=== PATIENT | male | born 1970 | race Caucasian/White ===

== ENCOUNTER 2022-04-25 09:04 | Emergency (ER) | payer OTHER, BC, MEDICAID, SELFPAY ==
[2022-04-25 09:27] VITALS: BP 136/83; PULSE 67; RESP 16; TEMP 36.4; O2SAT 100; BMI 21.7
[2022-04-25 09:50] VITALS: RESP 18
[2022-04-25] MEDS: ondansetron 2 mg/ML SDV 2 mL 4 MG IVP (09:50)
[2022-04-25] MEDS: morphine 4 mg/mL SDV 1 mL IVP (09:50)
--- NOTE | 2022-04-25 09:50 | W.ED.ABDPA2 ---
HPI - Abdominal Pain General: Chief Complaint: Abdominal Pain Stated Complaint: Severe pain in abd Time Seen by Provider: 04/25/22 09:06 Source: patient Mode of arrival: ambulatory History of Present Illness: 52-year-old male presents emergency room with complaints of abdominal discomfort. He has had it for the last couple of weeks. He had fallen and broken some ribs on the left side. He states intermittently had cramping since then. He has a history of right hemicolectomy due to a colon CA this was multiple years ago. He has had some nausea and vomiting. Denies any dysuria urgency or frequency no medication on hematemesis or coffee-ground emesis. No other family members have been sick. MD elicited complaint: abdominal pain Pertinent past history: other (Rib fractures 8 weeks ago) Onset (ago): week(s) Pain Consistency: constant Location: Epigastric Severity: moderate Quality: cramping Radiation: LUQ Exacerbating factors: movement Relieving factors: rest Associated Symptoms: Reports bloating, GI cramping and nausea; Denies anorexia, belching, change in bowel habits, change in stool character, chills, coffee ground emesis, constipation, diarrhea, dyspepsia, dysuria, excessive flatus, fever(s), heartburn, hematochezia, hematuria, hematemesis, fecal incontinence, loose stools, melena, poor appetite, syncope and vomiting Review of Systems Const: Reports: fatigue and malaise; Denies: fever(s) or chills ENMT: Denies: throat pain, ear or mastoid pain, nasal discharge or nasal congestion Card: Denies: syncope Resp: Denies: dyspnea, productive cough or non-productive cough GI: Reports: abdominal pain, nausea, bloating and GI cramping; Denies: vomiting, hematemesis, coffee ground emesis, heartburn, diarrhea, constipation, belching, excessive flatus, fecal incontinence, change in bowel habits, change in stool character, hematochezia or melena : Denies: flank pain, difficulty urinating, dysuria, urinary frequency, urinary urgency or hematuria Musc: Denies: neck pain or back pain Skin/Breast: Denies: rash or pruritus PFS ED PFSH: Medical History (Updated 04/25/22 @ 11:43 by Jose Reyes DO) 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 Rib fractures Surgical History (Updated 04/25/22 @ 09:57 by Jose Reyes DO) S/P colon resection Social History (Updated 04/25/22 @ 09:58 by Jose Reyes DO) Smoking and tobacco status: current every day smoker cigarettes and e-cigarettes Alcohol intake: former Physical Exam Const: COMMON NORMALS: no acute distress GENERAL APPEARANCE: cooperative and comfortable ORIENTATION/CONSCIOUSNESS: Yes awake, Yes oriented to person, Yes oriented to place and Yes oriented to time HENMT: COMMON NORMALS: normocephalic, atraumatic and hearing grossly normal bilaterally HEAD & SCALP: normocephalic and atraumatic Neck/C-Spine: COMMON NORMALS: no JVD Resp: COMMON NORMALS: normal respiratory effort, No retractions, No use of accessory muscles and clear to auscultation bilaterally AUSCULTATION: clear to auscultation bilaterally Cardio: COMMON NORMALS: no JVD, regular rate, regular rhythm and No murmurs present (Cardio) RATE: regular rate RHYTHM: regular rhythm GI: COMMON NORMALS: No hepatosplenomegaly present AUSCULTATION: Yes normoactive bowel sounds PALPATION: Yes Tenderness to palpation present (GI) Details: LUQ, No Guarding due to palpation present (GI) and Yes No hepatosplenomegaly present Extremity: COMMON NORMALS: normal to inspection, capillary refill normal, no clubbing, cyanosis or edema, no calf tenderness and no pedal edema Neuro: SENSORIUM/ORIENTATION: Yes oriented to person, Yes oriented to place and Yes oriented to time Skin: COMMON NORMALS: no rashes or lesions noted GENERAL SKIN EXAM: no rashes or lesions noted Course Vital Signs: Vital signs: Vital Signs Temperature 97.6 F 04/25/22 09:27 Pulse Rate 62 04/25/22 11:28 Respiratory Rate 18 04/25/22 11:28 Blood Pressure 131/74 04/25/22 11:28 Pulse Oximetry 98 04/25/22 11:28 MDM - Abdominal Pain Medical Decision Making CT shows small bowel enteritis also located in left upper quadrant. Labs otherwise unremarkable. There is some dilation of the common duct however there is no evidence of obstruction on the labs. UA is otherwise unremarkable. We will discharge patient home clear liquid diet for 24 to 48 hours can use ondansetron as needed. Medical Records I reviewed the patient's medical records. Lab Data I reviewed the patient's lab results. : 04/25/22 09:51 04/25/22 11:00 Labs/Radiology: Radiology Impressions Abdomen/Pelvis CT 04/25/22 10:19 IMPRESSION: 1. Prior postoperative changes RIGHT hemicolectomy with ileocolic anastomosis in the midabdomen. No evidence of high-grade small or large bowel obstruction. 2. Distended loops of fluid-filled small bowel in the LEFT upper quadrant with prominent mucosal enhancement suspicious for infectious or inflammatory small bowel enteritis. Distended enhancing small bowel measures up to 3.5 CM. 3. Normal spleen 4. No hydronephrosis in either kidney. Normal renal parenchymal enhancement. 5. Normal fluid-filled gallbladder with mild dilatation of the common bile duct measuring 9-10 mm. This can be further evaluated MRCP on an elective basis. Mild prominence of pancreatic duct which is otherwise normal in appearance. 6. Enlarged prostate measuring 4.6 cm with evidence of chronic bladder outlet obstruction. Recommend correlation PSA 7. No other acute findings. Notified Jose Reyes DO at 04/25/2022 11:29 AM. Laboratory Results WBC 7.3 10^3/uL (4.0-10.0) 04/25/22 09:51 RBC 4.45 10^6/uL (4.1-5.3) 04/25/22 09:51 Hgb 15.0 g/dL (11.7-16.6) 04/25/22 09:51 Hct 44.8 % (42.0-52.0) 04/25/22 09:51 MCV 100.7 fl (80-94) H 04/25/22 09:51 MCH 33.7 pg (28.0-34.0) 04/25/22 09:51 MCHC 33.5 g/dL (30.0-36.0) 04/25/22 09:51 RDW 13.2 % (12.1-15.1) 04/25/22 09:51 Plt Count 186 10^3/cmm (130-400) 04/25/22 09:51 MPV 10.1 fL (7.4-10.4) 04/25/22 09:51 Neut % (Auto) 61.3 % 04/25/22 09:51 Lymph % (Auto) 27.9 % 04/25/22 09:51 [place] % (Auto) 6.8 % 04/25/22 09:51 Eos % (Auto) 3.0 % 04/25/22 09:51 Baso % (Auto) 0.7 % 04/25/22 09:51 Neut # (Auto) 4.45 10^3/uL (1.8-7.7) 04/25/22 09:51 Lymph # (Auto) 2.0 10^3/uL (0.8-4.8) 04/25/22 09:51 [place] # (Auto) 0.5 10^3/uL (0.2-0.9) 04/25/22 09:51 Eos # (Auto) 0.2 10^3/uL (0.0-0.8) 04/25/22 09:51 Baso # (Auto) 0.1 10^3/uL (0.0-0.1) 04/25/22 09:51 Nucleated RBC % (auto) 0 % 04/25/22 09:51 Nucleated RBCs # 0.0 /100WBC 04/25/22 09:51 Sodium 137 mmol/L (136-145) 04/25/22 11:00 Potassium 3.9 mmol/L (3.5-5.1) 04/25/22 11:00 Chloride 101 mmol/L (98-107) 04/25/22 11:00 Carbon Dioxide 28 mmol/L (22-29) 04/25/22 11:00 Anion Gap 11.9 (5-19) 04/25/22 11:00 BUN 14 mg/dL (6-20) 04/25/22 11:00 Creatinine 0.7 mg/dL (0.7-1.2) 04/25/22 11:00 GFR Calculation 118.9 mL/min (90-130) 04/25/22 11:00 Glucose 92 mg/dL (65-115) 04/25/22 11:00 Calculated Osmolality 284 mOsm/kg (285-295) L 04/25/22 11:00 Lactic Acid 2.1 mmol/L (0.5-2.2) 04/25/22 09:51 Calcium 8.9 mg/dL (8.5-10.5) 04/25/22 11:00 Total Bilirubin 0.6 mg/dL (0.15-1.2) 04/25/22 11:00 AST 15 U/L (0-40) 04/25/22 11:00 ALT 16 U/L (0-41) 04/25/22 11:00 Alkaline Phosphatase 66 IU/L (40-130) 04/25/22 11:00 Total Protein 6.0 g/dL (6.6-8.7) L 04/25/22 11:00 Albumin 4.2 g/dL (3.5-5.2) 04/25/22 11:00 Globulin 1.8 g/dL (1.3-4.6) 04/25/22 11:00 Lipase 60 U/L (13-60) 04/25/22 11:00 Urine Color Yellow (Yellow) 04/25/22 10:25 Urine Appearance Clear (CLEAR) 04/25/22 10:25 Urine pH 5 (5-7) 04/25/22 10:25 Ur Specific [place] 1.025 (1.005-1.030) 04/25/22 10:25 Urine Protein Neg (Negative) 04/25/22 10:25 Urine Glucose (UA) Norm (Normal) 04/25/22 10:25 Urine Ketones 1+ (Negative) H 04/25/22 10:25 Urine Blood Neg (Negative) 04/25/22 10:25 Urine Nitrate Negative (Negative) 04/25/22 10:25 Urine Bilirubin Neg (Negative) 04/25/22 10:25 Urine Urobilinogen Norm mg/dL (Negative) 04/25/22 10:25 Ur Leukocyte Esterase Negative (Negative) 04/25/22 10:25 Discharge Plan Discharge Patient Disposition: Home Clinical Impression: Regional enteritis of small bowel Condition: Stable Prescriptions: New ondansetron HCl 4 mg tablet 4 mg PO Q6H PRN (Reason: nausea and vomiting) Qty: 20 0RF hydrocodone-acetaminophen 5-325 mg tablet 1 tab PO Q6H PRN (Reason: pain) Qty: 10 0RF Discharge Orders: Discharge ED (Routine); Ordered 04/25/22 Ordered By: Jose Reyes Discharge Diet: Clear Liquid Discharge Activity: Increase activity as tolerated Activity Restrictions/Additional Instructions: Clear liquid diet for 24 to 48 hours and advance as tolerated. Coding Level of Care Code ED Chiropractor Sole Practitioner for Chg Fwd Exam Comprehensive
[2022-04-25 09:57] VITALS: BP 138/75; PULSE 59; RESP 18; O2SAT 100
[2022-04-25 10:05] LABS: Basophils # 0.1 10^3/uL (0.0-0.1); Basophils % 0.7 %; Eosinophils # 0.2 10^3/uL (0.0-0.8); Hematocrit 44.8 % (42.0-52.0); Lymphocytes % 27.9 %; Mean Corpuscular HGB Conc 33.5 g/dL (30.0-36.0); Mean Corpuscular Hemoglobin 33.7 pg (28.0-34.0); Mean Corpuscular Volume 100.7 fl (80-94); Mean Platelet Volume 10.1 fL (7.4-10.4); Monocytes # 0.5 10^3/uL (0.2-0.9); Monocytes % 6.8 %; Neutrophils # 4.45 10^3/uL (1.8-7.7); Neutrophils % 61.3 %; Nucleated Red Blood Cells % 0 %; Platelet Count 186 10^3/cmm (130-400); Red Blood Count 4.45 10^6/uL (4.1-5.3); Red Cell Distribution Width 13.2 % (12.1-15.1); White Blood Count 7.3 10^3/uL (4.0-10.0)
--- NOTE | 2022-04-25 10:19 | CT_ITS ---
WS: [id number] CT ABDOMEN PELVIS TECHNIQUE: Contrast-enhanced CT of the abdomen and pelvis with coronal and sagittal reformatted image s. CLINICAL INFORMATION: abd pain COMPARISON: None. DLP: 926.[address] scans at [facility] use at least one of these dose optimization techniques: automated e xposure control; mA and/or kV adjustment per patient size (includes targeted exams where dose is matc hed to clinical indication); or iterative reconstruction. FINDINGS:Evidence of prior appendectomy with subtotal RIGHT colectomy. Anastomosis in the mid transve rse colon. Spleen measures 10.0 cm [id number]. A few splenic granulomas. Fluid distended loops of e nhancing small bowel in the LEFT upper quadrant measuring up to 3.5 CM. A few air-fluid levels in the colon at the anastomosis with mild distention but no evidence of obstruction. Remainder of the colon is decompressed with mild fecal retention. No evidence of high-grade obstructi on.Normal pancreatic parenchymal enhancement. Mild dilatation of the pancreatic duct. Mild dilatation common bile duct measuring 9-10 mm. Fluid distention of the gallbladder. No gallbladder wall thicken ing or pericholecystic fluid. Common bile duct can be further evaluated MRCP. Enlarged heterogenous prostate measuring 4.6 cm with evidence of bladder outlet obstruction. Recommen d correlation PSA. Lung bases are well aerated. Splenic granulomas. Normal GE junction. Adrenal glands are normal. [place] l renal parenchymal enhancement. No hydronephrosis. Normal liver. Normal portal vein and splenic vein . Celiac and SMA are patent. Normal caliber abdominal aorta. Postoperative changes pedicle screw fixation L4-S1. No visualized abdominal or pelvic lymphadenopathy. No inguinal lymphadenopathy. CT/CT abdomen pelvis w con* [id number] IMPRESSION: 1. Prior postoperative changes RIGHT hemicolectomy with ileocolic anastomosis in the midabdomen. No evidence of high-grade small or large bowel obstruction. 2. Distended loops of fluid-filled small bowel in the LEFT upper quadrant with prominent mucosal enhancement suspicious for infectious or inflammatory small bowel enteritis. Distended enhancing small bowel measures up to 3.5 CM. 3. Normal spleen 4. No hydronephrosis in either kidney. Normal renal parenchymal enhancement. 5. Normal fluid-filled gallbladder with mild dilatation of the common bile isi t measuring 9-10 mm. This can be further evaluated MRCP on an elective basis. M ild prominence of pancreatic duct which is otherwise normal in appearance. 6. Enlarged prostate measuring 4.6 cm with evidence of chronic bladder outlet obstruction. Recommend correlation PSA 7. No other acute findings. Notified Jose Reyes DO at 04/25/2022 11:29 AM.
[2022-04-25 10:23] LABS: Lactic Sepsis W/Reflex 2.1 mmol/L (0.5-2.2)
[2022-04-25 10:42] LABS: Add Urine Microscopic? NO; Charge for UA Resulting for Rev
[2022-04-25] MEDS: iohexol 350 mg/mL 100 mL Btl IV (10:54)
[2022-04-25 11:00] LABS: Bilirubin Urine Neg (Negative); Blood Urine Neg (Negative); Glucose Urine UA Norm (Normal); Ketones Urine 1+ (Negative); Leukocyte Esterase Urine Negative (Negative); Nitrate Urine Negative (Negative); Protein Urine Neg (Negative); Specific Gravity, Urine 1.025 (1.005-1.030); Urine Appearance Clear (CLEAR); Urine Color Yellow (Yellow); Urobilinogen Urine Norm (Negative); pH Urine 5 (5-7)
[2022-04-25 11:28] VITALS: BP 131/74; PULSE 62; RESP 18; O2SAT 98
[2022-04-25 11:34] LABS: Alanine Aminotransferase 16 U/L (0-41); Albumin Level 4.2 g/dL (3.5-5.2); Alkaline Phosphatase 66 IU/L (40-130); Anion Gap 11.9 (5-19); Aspartate Amino Transferase 15 U/L (0-40); Blood Urea Nitrogen 14 mg/dL (6-20); Calcium 8.9 mg/dL (8.5-10.5); Carbon Dioxide 28 mmol/L (22-29); Chloride 101 mmol/L (98-107); Globulin 1.8 g/dL (1.3-4.6); Glomerular Filtration Rate 118.9 mL/min (90-130); Glucose 92 mg/dL (65-115); Lipase 60 U/L (13-60); Osmolality Calculated 284 mOsm/kg (285-295); Potassium 3.9 mmol/L (3.5-5.1); Sodium 137 mmol/L (136-145); Total Bilirubin 0.6 mg/dL (0.15-1.2)
[2022-04-25 11:51] LABS: Reflex Lactate Order REFLEX LACTIC ORDERD
[2022-04-25 12:13] VITALS: BP 121/73; PULSE 60; O2SAT 99
== END 2022-04-25 12:14 | disposition home or self-care (01) ==
PROVIDERS: Emergency Provider Family Medicine
DX: K50.00 Crohn's disease of small intestine without complications (principal); F17.290 Nicotine dependence, other tobacco product, uncomplicated
CPT/HCPCS: 36415; 74177; 80053; 81003; 83605; 83690; 85025; 96374; 96375; 99285; J2270; J2405; Q9967

== ENCOUNTER → 2022-05-20 08:24 | Outpatient (BNVA) | payer BC, MEDICAID, SELFPAY | PROVIDERS: Visit Provider Podiatrist Foot & Ankle Surgery | DX: Q82.8 Other specified congenital malformations of skin (principal); M21.621 Bunionette of right foot | CPT/HCPCS: 17110; 99204 ==

== ENCOUNTER → 2024-01-08 14:49 | Outpatient (BNVA) | payer BC, MEDICAID, SELFPAY | PROVIDERS: PCP Family Medicine; Visit Provider Family Medicine | DX: R79.89 Other specified abnormal findings of blood chemistry (principal); R53.82 Chronic fatigue, unspecified; D45 Polycythemia vera; N40.1 Benign prostatic hyperplasia with lower urinary tract symptoms; N13.8 Other obstructive and reflux uropathy; Z76.89 Persons encountering health services in other specified circumstances; M25.50 Pain in unspecified joint | CPT/HCPCS: 80053; 80061; 82306; 82533; 82607; 82728; 83735; 84439; 84443; 84550; 85025; 85651; 86003; 86008; 86038; 86140; 86431; 86618; 86666; 86757; 86803; 87806; G0103 ==

== ENCOUNTER 2024-06-02 12:31 | Emergency (ER) | payer BC, MEDICAID, SELFPAY ==
--- NOTE | 2024-06-02 12:33 | XR_ITS ---
WS: [id number] Exam: XR chest 1V portable [id number] Date/Time of Exam: 06/02/2024 12:33 PM Reason For Exam: cp No priors. The lungs are fully inflated and clear. Normal cardiomediastinal silhouette and regional bony element s. XR/XR chest 1V portable [id number] IMPRESSION: 1. Negative chest.
[2024-06-02 12:35] VITALS: BP 134/77; PULSE 77; RESP 16; TEMP 36.4; O2SAT 99; BMI 21.9
--- NOTE | 2024-06-02 12:57 | CT_ITS ---
WS: [id number] CT CHEST TECHNIQUE: Noncontrast CT of the chest with coronal and sagittal reformatted images. CLINICAL INFORMATION: left lateral rib pain COMPARISON: None. DLP: 339.[address] scans at [facility] use at least one of these dose optimization techniques: automated e xposure control; mA and/or kV adjustment per patient size (includes targeted exams where dose is matc hed to clinical indication); or iterative reconstruction. FINDINGS: Tiny nondisplaced buckle fracture involving the LEFT sixth rib anterolaterally is new since 2021. Suggestion of a small amount of intercostal edema. No pneumothorax. No other visualized rib fr actures. Moderate chronic emphysematous changes. Fibrosis in the lung apices. No focal pneumonia or pleural fl uid. No acute appearing pulmonary infiltrates. Normal caliber thoracic aorta. Calcified anterior mediastinal and RIGHT hilar lymph nodes. No axillar y lymphadenopathy. Adrenal glands are normal. Mild thoracic curve. Mild spondylitic changes thoracic spine. CT/CT chest con [id number] IMPRESSION: 1. Tiny nondisplaced buckle fracture involving the sixth rib anterolaterally w ith suggestion of a small amount of intercostal edema. No pneumothorax. This ap pears new since 2021. 2. No other acute findings.
--- NOTE | 2024-06-02 13:04 | W.ED.GENADLT ---
HPI - General Adult General: Chief complaint: General Medical Stated complaint: Pain left side SOB Time Seen by Provider: 06/02/24 12:49 History of Present Illness: 54-year-old male who presents to the emergency room with left lateral lower rib pain. He said this started while he was working on his car. He was leaning on something and felt a pop in his ribs. Since then he has had pain and shortness of breath. No fevers. Some mild cough. No altered mental status. No focal motor deficits. No nausea or vomiting. No abdominal pain. Related Data Home Medications Medication Instructions Recorded Confirmed Aleve Dual Action 1 tab PO Q6H PRN Pain 06/02/24 06/02/24 pregabalin 50 mg capsule (Lyrica) 50 mg PO BEDTIME 06/02/24 06/02/24 tamsulosin 0.4 mg capsule 0.4 mg PO QPM 06/02/24 06/02/24 tramadol 50 mg tablet 50 - 100 mg PO Q6H PRN Pain 06/02/24 06/02/24 Previous Rx's Medication Instructions Recorded allopurinol 100 mg tablet 100 mg PO BID #60 tabs 02/05/24 diclofenac sodium 50 mg 50 mg PO BID PRN pain #14 tabs 06/02/24 tablet,delayed release hydrocodone 5 mg-acetaminophen 325 1 tab PO Q6H PRN pain #20 tabs 06/02/24 mg tablet polyethylene glycol 3350 17 17 g PO DAILY #510 grams 06/02/24 gram/dose oral powder (Miralax) Allergies Allergy/AdvReac Type Severity Reaction Status Date / Time morphine Allergy ALGY-Hives Verified 02/05/24 08:57 Review of Systems Narrative: Constitutional symptoms: Negative except as documented in HPI. Skin symptoms: Negative except as documented in HPI. Eye symptoms: Negative except as documented in HPI. ENMT symptoms: Negative except as documented in HPI. Respiratory symptoms: Negative except as documented in HPI. Cardiovascular symptoms: Negative except as documented in HPI. Gastrointestinal symptoms: Negative except as documented in HPI. Genitourinary symptoms: Negative except as documented in HPI. Musculoskeletal symptoms: Negative except as documented in HPI. Neurologic symptoms: Negative except as documented in HPI. Psychiatric symptoms: Negative except as documented in HPI. Endocrine symptoms: Negative except as documented in HPI. 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 Surgical History S/P colon resection Family History Mother Lung cancer Colon cancer Social History Smoking and tobacco/nicotine status: current every day tobacco/nicotine user e-cigarettes E-Cigarette Details: e-cigarette, vaporizer device and with nicotine Alcohol intake: current Alcohol intake frequency: few times a month Alcohol type: beer Substance/Drug Use: never Adopted: No Caregiver/support person: No Lives independently: Yes Household members: spouse Marital status: service: Yes Current occupational status: retired and disabled Current occupation: Medically Retired Do you think of yourself as: Straight/Heterosexual Current gender identity: Male Physical Exam Narrative: EXAM NARRATIVE: General: Alert, no acute distress. Skin: Warm, dry. Head: Normocephalic, atraumatic. Neck: Supple, trachea midline. Eye: Extraocular movements are intact. Ears, nose, mouth and throat: mucosa moist. Cardiovascular: Regular, Normal peripheral perfusion. Respiratory: Lungs are clear to auscultation, respirations are non-labored, breath sounds are equal, Symmetrical chest wall expansion. Left lateral lower tenderness to palpation of the rib cage. Gastrointestinal: Soft, Nontender, Non distended Musculoskeletal: Normal ROM, no deformity. Neurological: Alert and oriented, No focal neurological deficit observed. Psychiatric: Cooperative, appropriate mood & affect. Course Vital Signs: Vital signs: Vital Signs Temperature 97.6 F 06/02/24 12:35 Pulse Rate 59 L 06/02/24 13:54 Respiratory Rate 16 06/02/24 13:54 Blood Pressure 112/71 06/02/24 13:52 Pulse Oximetry 97 06/02/24 13:54 Oxygen Delivery Me thod Room Air 06/02/24 13:54 [facility] - General Adult Medical Decision Making Chest x-ray: No acute process. No infiltrate. No pneumothorax. This was reviewed and interpreted by myself the ER physician. CT of the chest without contrast: This was ordered because of patient's symptoms. And there was a small left lateral sixth rib buckle fracture. This was reviewed and interpreted by myself the emergency room physician. I also reviewed the radiology report. EKG: Time 1324. Rate 60. Early repolarization. Normal sinus rhythm, No ST-T changes, no ectopy, normal ME & QRS intervals, This was reviewed and interpreted by myself the ER physician at 1326. Lab review: I reviewed and interpreted all lab work personally. No leukocytosis. No anemia. Lab work is unremarkable. No leukocytosis. No anemia. No renal failure. I have examined the patient's chart. Reexamination: Patient remained stable. No increased work of breathing. No altered mental status. No focal motor deficits. I discussed incentive spirometry and pneumonia prevention. Assessment and plan: Rib fracture ?[place] in the emergency room. -Respiratory therapy performed incentive spirometry with patient. - Discharged home - Discussed findings and plan with patient. Answered any questions. - All laboratory values were reviewed and interpreted personally by myself, the ER physician - All imaging was reviewed and interpreted personally by myself, the ER physician. - Evaluation and treatment of this problem were appropriate in the emergency setting Lab Data 06/02/24 12:46 06/02/24 12:46 Radiology Impressions Chest X-Ray 06/02/24 12:33 IMPRESSION: 1. Negative chest. Chest CT 06/02/24 12:57 IMPRESSION: 1. Tiny nondisplaced buckle fracture involving the sixth rib anterolaterally with suggestion of a small amount of intercostal edema. No pneumothorax. This appears new since 2021. 2. No other acute findings. Laboratory Results WBC 6.16 10^3/uL (3.29-11.43) 06/02/24 12:46 RBC 4.97 10^6/uL (3.85-5.65) 06/02/24 12:46 Hgb 15.70 g/dL (11.27-16.99) 06/02/24 12:46 Hct 48.4 % (37-53) 06/02/24 12:46 MCV 97.4 fl (82-101) 06/02/24 12:46 MCH 31.6 pg (27-33) 06/02/24 12:46 MCHC 32.4 g/dL (30-55) 06/02/24 12:46 RDW 11.9 % (12.1-15.1) L 06/02/24 12:46 Plt Count 199 10^3/cmm (157-399) 06/02/24 12:46 MPV 9.5 fL (7.4-10.4) 06/02/24 12:46 Neut % (Auto) 50.3 % 06/02/24 12:46 Lymph % (Auto) 40.3 % 06/02/24 12:46 [place] % (Auto) 5.4 % 06/02/24 12:46 Eos % (Auto) 3.2 % 06/02/24 12:46 Baso % (Auto) 0.6 % 06/02/24 12:46 Neut # (Auto) 3.10 10^3/uL (1.8-7.7) 06/02/24 12:46 Lymph # (Auto) 2.5 10^3/uL (0.8-4.8) 06/02/24 12:46 [place] # (Auto) 0.3 10^3/uL (0.2-0.9) 06/02/24 12:46 Eos # (Auto) 0.2 10^3/uL (0.0-0.8) 06/02/24 12:46 Baso # (Auto) 0.0 10^3/uL (0.0-0.1) 06/02/24 12:46 Nucleated RBC % (auto) 0 % 06/02/24 12:46 Nucleated RBCs # 0.0 /100WBC 06/02/24 12:46 Sodium 140 mmol/L (136-145) 06/02/24 12:46 Potassium 3.9 mmol/L (3.5-5.1) 06/02/24 12:46 Chloride 103 mmol/L (98-107) 06/02/24 12:46 Carbon Dioxide 27 mmol/L (22-29) 06/02/24 12:46 Anion Gap 13.9 (5-19) 06/02/24 12:46 BUN 11 mg/dL (6-20) 06/02/24 12:46 Creatinine 1.1 mg/dL (0.7-1.2) 06/02/24 12:46 GFR Calculation 70.0 mL/min (90-130) L 06/02/24 12:46 Glucose 92 mg/dL (65-115) 06/02/24 12:46 Calculated Osmolality 289 mOsm/kg (285-295) 06/02/24 12:46 Calcium 9.0 mg/dL (8.5-10.5) 06/02/24 12:46 Total Bilirubin 0.3 mg/dL (0.15-1.2) 06/02/24 12:46 AST 17 U/L (0-40) 06/02/24 12:46 ALT 16 U/L (0-41) 06/02/24 12:46 Alkaline Phosphatase 77 U/L (40-130) 06/02/24 12:46 Troponin T Baseline 7 ng/L (0-15) 06/02/24 12:46 NT-Pro-B Natriuret Pep 55 pg/mL (0-125) 06/02/24 12:46 Total Protein 6.6 g/dL (6.6-8.7) 06/02/24 12:46 Albumin 4.3 g/dL (3.5-5.2) 06/02/24 12:46 Globulin 2.3 g/dL (1.3-4.6) 06/02/24 12:46 Lipase 52 U/L (13-60) 06/02/24 12:46 All radiology interpretation(s) finalized by discharge Discharge Plan Discharge Patient Disposition: Home Clinical Impression: Rib fracture Condition: Stable Prescriptions: New hydrocodone-acetaminophen 5-325 mg tablet 1 tab PO Q6H PRN (Reason: pain) Qty: 20 0RF diclofenac sodium 50 mg tablet,delayed release (DR/EC) 50 mg PO BID PRN (Reason: pain) Qty: 14 0RF Miralax 17 gram/dose powder 17 g PO DAILY Qty: 510 0RF Rx Instructions: Take 1 scoop daily while taking pain medications. No Action allopurinol 100 mg tablet 100 mg PO BID Qty: 60 2RF Aleve Dual Action 1 tab PO Q6H PRN (Reason: Pain) tamsulosin 0.4 mg capsule 0.4 mg PO QPM Lyrica 50 mg capsule 50 mg PO BEDTIME tramadol 50 mg tablet 50 - 100 mg PO Q6H PRN (Reason: Pain) Discharge Orders: Discharge ED (Routine); Ordered 06/02/24 Ordered By: Edith Castorena Referrals: Kavita,Ronal W, DO [Primary Care Provider] - Discharge Diet: Usual diet Discharge Activity: Increase activity as tolerated Patient Instructions: How to Use an Incentive Spirometer (ED), Rib Fracture (ED), Opioid Safety Activity Restrictions/Additional Instructions: Please be sure to use your incentive spirometer at least 2-3 times a day and/or take large deep breaths quite frequently to prevent developing pneumonia. Thank you for choosing [facility] for your healthcare needs today. Please realize this is an emergency room and that we are providing you with a medical screening exam and this may not be complete and all inclusive of all the testing and or work up that you may need to determine your ailment or severity of your illness. You have been screened and evaluated and felt safe for discharge. Health conditions do change or evolve sometimes and as such it is important that you follow up with your Primary Doctor to be re checked, 3-5 days is a general good time frame for follow up. You are always welcome to return to the ED for re assessment if your symptoms are worsening or you have new concerns Coding Level of Care Code ED [employer] for Sammy Alcala
[2024-06-02 13:15] LABS: Basophils % 0.6 %; Eosinophils # 0.2 10^3/uL (0.0-0.8); Eosinophils % 3.2 %; Hematocrit 48.4 % (37-53); Lymphocytes # 2.5 10^3/uL (0.8-4.8); Lymphocytes % 40.3 %; Mean Corpuscular HGB Conc 32.4 g/dL (30-55); Mean Corpuscular Hemoglobin 31.6 pg (27-33); Mean Corpuscular Volume 97.4 fl (82-101); Mean Platelet Volume 9.5 fL (7.4-10.4); Monocytes # 0.3 10^3/uL (0.2-0.9); Monocytes % 5.4 %; Neutrophils % 50.3 %; Nucleated Red Blood Cells % 0 %; Platelet Count 199 10^3/cmm (157-399); Red Blood Count 4.97 10^6/uL (3.85-5.65); Red Cell Distribution Width 11.9 % (12.1-15.1); White Blood Count 6.16 10^3/uL (3.29-11.43)
[2024-06-02] MEDS: HYDROcodone-acetaminophen 10-325 mg Tablet 1 TAB PO (13:21)
--- NOTE | 2024-06-02 13:24 | ECG_ITS ---
[facility] Test Date: 2024-06-02 Pat Name: Levi Calhoun Department: Room: Gender: Male Cancer Registry Coordinator: : 1970 Requested By: Claude Simon Order Number: [id number] Audra MD: Seferino Ortiz M.D. Measurements Intervals [place] Rate: 60 P: 70 TN: 138 QRS: 84 QRSD: 87 T: 70 QT: 393 QTc: 394 Interpretive Statements SINUS RHYTHM ST ELEVATION, PROBABLY EARLY REPOLARIZATION [ST ELEVATION WITH NORMALLY INFLECTED T-WAVE] No previous ECG available for comparison Electronically Signed On 06-03-2024 9:01:21 CDT by Seferino Ortiz M.D. [email or web address] children's hospital [id number]
[2024-06-02 13:28] VITALS: BP 113/53; PULSE 59; RESP 16; O2SAT 99
[2024-06-02 13:35] LABS: Troponin(5th) Baseline 7 ng/L (0-15)
[2024-06-02 13:52] VITALS: BP 112/71; PULSE 69; RESP 16; O2SAT 97
[2024-06-02 13:54] VITALS: PULSE 59; RESP 16; O2SAT 97
[2024-06-02 13:59] LABS: Alanine Aminotransferase 16 U/L (0-41); Albumin Level 4.3 g/dL (3.5-5.2); Alkaline Phosphatase 77 U/L (40-130); Anion Gap 13.9 (5-19); Aspartate Amino Transferase 17 U/L (0-40); Blood Urea Nitrogen 11 mg/dL (6-20); Carbon Dioxide 27 mmol/L (22-29); Chloride 103 mmol/L (98-107); Globulin 2.3 g/dL (1.3-4.6); Glucose 92 mg/dL (65-115); Lipase 52 U/L (13-60); NT Pro B Type Natriuretic Pept 55 pg/mL (0-125); Osmolality Calculated 289 mOsm/kg (285-295); Potassium 3.9 mmol/L (3.5-5.1); Sodium 140 mmol/L (136-145); Total Bilirubin 0.3 mg/dL (0.15-1.2); Total Protein 6.6 g/dL (6.6-8.7)
== END 2024-06-02 13:59 | disposition home or self-care (01) ==
PROVIDERS: Emergency Medicine; Emergency Provider Emergency Medicine; PCP Family Medicine
DX: S22.32XA Fracture of one rib, left side, initial encounter for closed fracture (principal); X50.9XXA Other and unspecified overexertion or strenuous movements or postures, initial encounter; F17.290 Nicotine dependence, other tobacco product, uncomplicated
CPT/HCPCS: 36415; 71045; 71250; 80053; 83690; 83880; 84484; 85025; 93005; 99285

== ENCOUNTER → 2024-12-21 15:01 | Outpatient (BNVA) | payer BC, MEDICAID, SELFPAY | PROVIDERS: PCP Family Medicine; Visit Provider Physician Assistant | DX: G56.02 Carpal tunnel syndrome, left upper limb (principal) | CPT/HCPCS: 73130 ==

== ENCOUNTER → 2025-08-02 13:00 | Outpatient (BNVA) | payer BC, MEDICAID, SELFPAY | PROVIDERS: PCP Family Medicine; Visit Provider Family Medicine | DX: R63.4 Abnormal weight loss (principal); R13.10 Dysphagia, unspecified; D45 Polycythemia vera; C80.1 Malignant (primary) neoplasm, unspecified; R53.82 Chronic fatigue, unspecified; M1A.09X0 Idiopathic chronic gout, multiple sites, without tophus (tophi); M25.50 Pain in unspecified joint; Z12.5 Encounter for screening for malignant neoplasm of prostate; R79.89 Other specified abnormal findings of blood chemistry; E29.1 Testicular hypofunction; E55.9 Vitamin D deficiency, unspecified; F17.210 Nicotine dependence, cigarettes, uncomplicated; Z09 Encounter for follow-up examination after completed treatment for conditions other than malignant neoplasm; R13.14 Dysphagia, pharyngoesophageal phase | CPT/HCPCS: 80053; 80061; 82306; 82607; 82728; 82746; 83550; 83735; 84403; 84439; 84443; 84481; 85025; 85651; 86140; G0103 ==

== ENCOUNTER → 2025-08-03 16:10 | Outpatient (BNVA) | payer BC, MEDICAID, SELFPAY | PROVIDERS: PCP Family Medicine; Visit Provider Family Medicine | DX: R63.4 Abnormal weight loss (principal); R13.10 Dysphagia, unspecified; D45 Polycythemia vera; C80.1 Malignant (primary) neoplasm, unspecified; R53.82 Chronic fatigue, unspecified; M1A.09X0 Idiopathic chronic gout, multiple sites, without tophus (tophi); M25.50 Pain in unspecified joint; Z12.5 Encounter for screening for malignant neoplasm of prostate; R79.89 Other specified abnormal findings of blood chemistry; E29.1 Testicular hypofunction; E55.9 Vitamin D deficiency, unspecified; F17.210 Nicotine dependence, cigarettes, uncomplicated; Z09 Encounter for follow-up examination after completed treatment for conditions other than malignant neoplasm; R13.14 Dysphagia, pharyngoesophageal phase | CPT/HCPCS: 80503 ==

== ENCOUNTER 2025-08-08 06:45 | Outpatient (CLI) | payer BC, MEDICAID, SELFPAY ==
--- NOTE | 2025-08-08 07:15 | CT_ITS ---
WS: [id number] LDCT LUNG CANCER SCREENING TECHNIQUE: Noncontrast CT of the chest with coronal and sagittal reformatted images. CLINICAL INFORMATION: F17.210 - Nicotine dependence, cigarettes, uncomplicated COMPARISON: None. DLP: 56.69 mGy.cm DIvol: Mean CTDIvol: 0.90 (mGy) All CT scans at [facility] use at least one of these dose optimization techniques: automated exposure control; mA and/or kV adjustment per patient size (includes targeted exams where dose is matched to clinical indication); or iterative reconstruction. FINDINGS: Moderate chronic emphysematous changes. 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 No new suspicious pulmonary parenchymal abnormalities. Normal caliber thoracic aorta. Splenic granulomas. Calcified anterior mediastinal and RIGHT hilar lymph nodes. No axillary lymphadenopathy. Adrenal glands are normal. Mild thoracic curve. Mild spondylitic changes thoracic spine. LEFT anterior rib fracture with callus formation. CT/CT lung screening [id number] IMPRESSION: LUNG-RADS: 2-Benign Appearance or Behavior FOLLOW UP: 12 Month: Continue annual screening with LDCT
== END 2025-08-08 06:46 | disposition home or self-care (01) ==
LOC: RAD 06:45
PROVIDERS: PCP Family Medicine; Visit Provider Family Medicine
DX: Z12.2 Encounter for screening for malignant neoplasm of respiratory organs (principal); F17.210 Nicotine dependence, cigarettes, uncomplicated; J43.8 Other emphysema; J84.10 Pulmonary fibrosis, unspecified; D73.89 Other diseases of spleen; M43.8X4 Other specified deforming dorsopathies, thoracic region; S22.32XD Fracture of one rib, left side, subsequent encounter for fracture with routine healing; X58.XXXD Exposure to other specified factors, subsequent encounter; R59.0 Localized enlarged lymph nodes
CPT/HCPCS: 71271

== ENCOUNTER 2025-08-24 08:14 | Outpatient (CLI) | payer BC, MEDICAID, SELFPAY ==
--- NOTE | 2025-08-24 14:16 | FL_ITS ---
FL barium swallow modifd [id number] REASON FOR EXAM: Difficulty swallowing FLUOROSCOPY TIME: 2min [id number] # OF SPOT FILMS: None TECHNIQUE: Examination was supervised by the speech therapy department. The patient was examined in the sitting upright lateral projection. The swallowing of multiple consistencies of barium was performed under fluoroscopic control with video recording. FINDINGS: There was laryngeal vestibule penetration by thin liquid contrast. No aspiration. There appeared to be mild dysmotility in the thoracic esophagus with some impedance in the passage of the barium tablet. No fixed obstruction. IMPRESSION: A detailed report of the swallowing will be rendered by the speech therapy department. Laryngeal vestibule penetration by thin liquid contrast. Probable mild esophageal dysmotility. MTDD
== END 2025-08-24 08:15 | disposition home or self-care (01) ==
LOC: RAD 08:15
PROVIDERS: PCP Family Medicine; Visit Provider Surgery
DX: R13.14 Dysphagia, pharyngoesophageal phase (principal)
CPT/HCPCS: 74230; 92611